=== PATIENT | female | born 1965 | race Caucasian/White ===

== ENCOUNTER 2024-02-12 19:16 | Inpatient (IN) | payer MEDICARE, OTHER ==
[~2024-02-12] VITALS: Ht 160 cm; Wt 77.1 kg
[2024-02-12 20:00] LABS: BASOPHILS % (AUTO) 0.3 % (0.0-2.0); EOSINOPHILS # (AUTO) 0.1 K/uL (0.0-0.7); EOSINOPHILS % (AUTO) 1.5 % (0.0-6.0); HEMATOCRIT 39 % (33-45); HEMOGLOBIN 12.6 g/dL (11.5-14.8); LYMPHOCYTES # (AUTO) 2.4 K/uL (0.8-4.8); LYMPHOCYTES % (AUTO) 25.4 % (20.0-44.0); MEAN CORPUSCULAR HEMOGLOBIN 33 PG (26.0-33.0); MEAN CORPUSCULAR HGB CONC 33 g/dl (31.0-36.0); MEAN CORPUSCULAR VOLUME 101 fL (82-100); MONOCYTES # (AUTO) 1.2 K/uL (0.1-1.30); MONOCYTES % (AUTO) 12.4 % (2.0-12.0); NEUTROPHILS # (AUTO) 5.8 K/uL (1.8-8.9); NEUTROPHILS % (AUTO) 60.4 % (43.0-81.0); PLATELET COUNT (AUTO) 223 K/uL (150-450); RED BLOOD CELL COUNT(AUTO) 3.86 MIL/uL (4.0-5.2); RED CELL DISTRIBUTION WIDTH 12.6 % (11.5-15.0); WHITE BLOOD COUNT (AUTO) 9.6 K/uL (4.3-11.0)
[2024-02-12 20:14] LABS: ACETAMINOPHEN < 10 ug/ml (10-30); ALANINE AMINOTRANSFERASE 7 U/L (12-78); ALBUMIN 2.9 g/dL (3.4-5.0); ALCOHOL, BLOOD < 3 mg/dL (0-10); ALKALINE PHOSPHATASE 58 U/L (46-116); ASPARTATE AMINOTRANSFERASE < 5 U/L (15-37); BILIRUBIN,DIRECT 0.1 mg/dL (0.0-0.2); BILIRUBIN,TOTAL 0.1 mg/dL (0.2-1.0); CALCIUM, SERUM 9.2 mg/dL (8.5-10.1); CARBON DIOXIDE 31 mmol/L (21-32); CHLORIDE 104 mmol/L (98-107); SODIUM SERUM 139 mmol/L (136-145); TOTAL PROTEIN, SERUM 6.3 g/dL (6.4-8.2); UREA NITROGEN, BLOOD 18 mg/dL (7-18)
[2024-02-12 20:21] LABS: SALICYLATE 1.6 mg/dL (2.8-20.0)
[2024-02-12 20:22] LABS: GLUCOSE 480 mg/dL (74-106)
[2024-02-12 20:32] LABS: APPEARANCE,URINE Clear (CLEAR); BILIRUBIN,URINE Negative (NEGATIVE); BLOOD, URINE Negative Ery/uL (NEGATIVE); COLOR,URINE YELLOW (YELLOW); KETONES,URINE Negative (NEGATIVE); LEUKOCYTE ESTERASE ,URINE Negative (NEGATIVE); NITRITE, URINE Negative (NEGATIVE); PROTEIN,URINE Negative (NEGATIVE); UGLUCOSE >=1000 mg/dL (NEGATIVE); UROBILINOGEN,URINE 0.2 EU/dL (0.2)
[2024-02-12 20:40] LABS: RBC,URINE 0-2 /HPF (0-2)
[2024-02-12 20:41] LABS: ADD URINE CULTURE YES; BACTERIA,URINE Few /HPF (None Seen)
[2024-02-12 20:47] LABS: AMPHETAMINE, URINE NEGATIVE (NEGATIVE); BARBITURATE, URINE NEGATIVE (NEGATIVE); BENZODIAZEPINE, URINE NEGATIVE (NEGATIVE); CANNABINOID, URINE NEGATIVE (NEGATIVE); COCCAINE, URINE NEGATIVE (NEGATIVE); OPIATE, URINE NEGATIVE (NEGATIVE); PHENCYCLIDINE SCREEN,URINE NEGATIVE (NEGATIVE)
[2024-02-12] MEDS ORDERED: DEXTROSE 50%-WATER 50 ML DISP.SYRIN IV PRN (21:00)
[2024-02-12] MEDS: INSULIN REGULAR, HUMAN 100 UNIT/ML 10 ML VIAL SQ ONE (21:06)
[2024-02-12] MEDS: BLOOD SUGAR DIAGNOSTIC 1 EACH STRIP IN SCH (22:17)
[2024-02-12] MEDS ORDERED: SERT50TA PO (23:52)
[2024-02-12] MEDS ORDERED: NYST15CR TP (23:52)
[2024-02-12] MEDS ORDERED: MULT-447 PO (23:52)
[2024-02-12] MEDS ORDERED: ARIP10TA9 PO (23:52)
[2024-02-12] MEDS ORDERED: LITH300C2 PO (23:52)
[2024-02-12] MEDS ORDERED: DEUT12TA PO (23:52)
[2024-02-12] MEDS ORDERED: TRAM50TA2 PO (23:52)
[2024-02-12] MEDS ORDERED: FURO-145 PO (23:52)
[2024-02-12] MEDS ORDERED: OLAN10TA3 PO (23:52)
[2024-02-12] MEDS ORDERED: LORA-259 PO (23:52)
[2024-02-12] MEDS ORDERED: HALO100A2 IM (23:52)
[2024-02-12] MEDS ORDERED: DIVA500T54 PO ×2 (23:52)
[2024-02-12] MEDS ORDERED: DICL100G34 TP (23:52)
[2024-02-12] MEDS ORDERED: LEVO75TA7 PO (23:52)
[2024-02-12] MEDS ORDERED: CYAN100096 PO (23:52)
[2024-02-12] MEDS ORDERED: POTA10CA43 PO (23:52)
[2024-02-12] MEDS ORDERED: GABA-532 PO (23:52)
[2024-02-13 00:40] VITALS: BP 92/57; TEMP 98.3; O2SAT 99
[2024-02-13] MEDS ORDERED: MAG HYDROX/AL HYDROX/SIMETH 30 ML UDC PO PRN (01:00)
[2024-02-13] MEDS ORDERED: MAGNESIUM HYDROXIDE 30 ML UDC PO PRN (01:00)
[2024-02-13] MEDS ORDERED: ZOLPIDEM TARTRATE 5 MG TABLET PO PRN ×2 (01:00)
[2024-02-13] MEDS: BLOOD SUGAR DIAGNOSTIC 1 EACH STRIP IN ONE (01:37)
[2024-02-13] MEDS ORDERED: DOCU100C36 PO (02:32)
[2024-02-13] MEDS ORDERED: IBUP-1955 PO (02:34)
[2024-02-13 06:18] VITALS: BP 92/57; TEMP 98.3; O2SAT 99
[2024-02-13] MEDS: INSULIN REGULAR, HUMAN 100 UNIT/ML 3 ML VIAL SQ PRN (07:54)
[2024-02-13] MEDS: LEVOTHYROXINE SODIUM 75 MCG TABLET PO SCH (07:56)
[2024-02-13] MEDS: POTASSIUM CHLORIDE 10 MEQ TABLET.SA PO SCH (08:33)
[2024-02-13] MEDS: FUROSEMIDE 20 MG TABLET PO SCH (08:33)
[2024-02-13] MEDS: OLANZAPINE 10 MG VIAL IM ONE (08:46)
[2024-02-13] MEDS: NYSTATIN CREAM 15 GM TUBE TP SCH (09:00)
[2024-02-13] MEDS: CYANOCOBALAMIN 500 MCG TABLET PO SCH (09:00)
[2024-02-13] MEDS: MULTIVIT W/MINERALS 1 TAB TABLET PO SCH (09:00)
[2024-02-13] MEDS: GABAPENTIN 300 MG CAPSULE PO SCH (09:00)
[2024-02-13] MEDS: DICLOFENAC TOPICAL 100 GM TUBE TP SCH (09:00)
[2024-02-13] MEDS: BENZTROPINE MESYLATE (1 MG) 1 MG TABLET PO SCH (15:24)
[2024-02-13] MEDS: OLANZAPINE 2.5 MG TABLET PO SCH (15:24)
[2024-02-13] MEDS: DIVALPROEX SODIUM 500 MG TABLET.DR PO SCH (15:24)
[2024-02-13 16:00] VITALS: BP 120/80; TEMP 98; O2SAT 98
[2024-02-13] MEDS ORDERED: DIVALPROEX SODIUM 500 MG TABLET.DR PO SCH ×2 (17:00)
[2024-02-13] MEDS: CLOTRIMAZOLE 1% 15 GM TUBE TP SCH (17:19)
[2024-02-13 20:00] VITALS: BP 107/50; TEMP 97.9; O2SAT 100
[2024-02-13] MEDS: TEMAZEPAM 7.5 MG CAPSULE PO PRN (21:26)
[2024-02-14] MEDS: OLANZAPINE 2.5 MG TABLET PO PRN (04:20)
[2024-02-14 07:16] LABS: BASOPHILS % (AUTO) 0.4 % (0.0-2.0); EOSINOPHILS # (AUTO) 0.1 K/uL (0.0-0.7); EOSINOPHILS % (AUTO) 0.8 % (0.0-6.0); HEMATOCRIT 38 % (33-45); HEMOGLOBIN 12.7 g/dL (11.5-14.8); LYMPHOCYTES # (AUTO) 2.1 K/uL (0.8-4.8); LYMPHOCYTES % (AUTO) 29.3 % (20.0-44.0); MEAN CORPUSCULAR HEMOGLOBIN 33 PG (26.0-33.0); MEAN CORPUSCULAR HGB CONC 33 g/dl (31.0-36.0); MEAN CORPUSCULAR VOLUME 98 fL (82-100); MONOCYTES # (AUTO) 0.8 K/uL (0.1-1.30); NEUTROPHILS # (AUTO) 4.2 K/uL (1.8-8.9); NEUTROPHILS % (AUTO) 58.5 % (43.0-81.0); PLATELET COUNT (AUTO) 238 K/uL (150-450); RED BLOOD CELL COUNT(AUTO) 3.88 MIL/uL (4.0-5.2); WHITE BLOOD COUNT (AUTO) 7.1 K/uL (4.3-11.0)
[2024-02-14 07:31] LABS: CALCIUM, SERUM 9.7 mg/dL (8.5-10.1); CREATININE 0.7 mg/dL (0.6-1.3); POTASSIUM 4.4 mmol/L (3.5-5.1)
[2024-02-14 08:00] VITALS: BP 108/82; TEMP 97.7; O2SAT 97
[2024-02-14] MEDS: ZIPRASIDONE MESYLATE 20 MG/VIAL VIAL IM ONE (09:13)
[2024-02-14] MEDS: DIVALPROEX SODIUM 250 MG TABLET.DR PO SCH (12:02)
[2024-02-14] MEDS: METFORMIN 500 MG TABLET PO SCH (12:23)
[2024-02-14 16:00] VITALS: BP 107/53; TEMP 98.2; O2SAT 98
[2024-02-14 20:00] VITALS: BP 125/82; TEMP 97.7; O2SAT 98
[2024-02-14] MEDS: OLANZAPINE 2.5 MG TABLET PO SCH (21:21)
[2024-02-14] MEDS: TRAZODONE 50 MG TABLET PO SCH (22:12)
[2024-02-15] MEDS: TRAMADOL HCL 50 MG TABLET PO PRN (04:43)
[2024-02-15] MEDS: ZIPRASIDONE MESYLATE 20 MG/VIAL VIAL IM ONE (05:34)
[2024-02-15] MEDS: OLANZAPINE 2.5 MG TABLET ONE (05:53)
[2024-02-15 08:00] VITALS: BP 131/88; TEMP 98.2; O2SAT 96
[2024-02-15] MEDS: PROPRANOLOL HCL 10 MG TABLET PO SCH (12:06)
[2024-02-15 16:00] VITALS: BP 118/79; TEMP 98.4; O2SAT 96
[2024-02-16] MEDS: ACETAMINOPHEN 325 MG TABLET PO PRN (04:26)
[2024-02-16 08:00] VITALS: BP 111/73; TEMP 98.7; O2SAT 100
[2024-02-16] MEDS: OLANZAPINE 2.5 MG TABLET PO SCH (13:48)
[2024-02-16 16:00] VITALS: BP 110/75; TEMP 98.1; O2SAT 97
[2024-02-16 20:49] VITALS: BP 101/64; TEMP 99; O2SAT 99
[2024-02-16] MEDS: OLANZAPINE 10 MG TABLET PO SCH (21:03)
[2024-02-17 08:00] VITALS: BP 126/96; TEMP 98.7; O2SAT 98
[2024-02-17 16:00] VITALS: BP 111/74; TEMP 97.9; O2SAT 99
[2024-02-17 20:00] VITALS: BP_SYST 105; BP_SYST 88; BP_DIAS 44; BP_DIAS 52; TEMP 97.8; O2SAT 97
[2024-02-18] MEDS: clonazePAM 0.5 MG TABLET PO PRN (05:58)
[2024-02-18 08:00] VITALS: BP 109/78; TEMP 98.7; O2SAT 98
[2024-02-18] MEDS: DIVALPROEX SODIUM 250 MG TABLET.DR PO SCH (08:39)
[2024-02-18 16:00] VITALS: BP 100/51; TEMP 98.7; O2SAT 100
[2024-02-18 20:00] VITALS: BP 84/50; TEMP 98.8; O2SAT 99
[2024-02-19 08:00] VITALS: BP 122/106; TEMP 97.7; O2SAT 94
[2024-02-19] MEDS: LORAZEPAM 0.5 MG TABLET PO ONE (09:21)
[2024-02-19] MEDS: clonazePAM 0.5 MG TABLET PO SCH (13:21)
[2024-02-19 16:00] VITALS: BP 123/90; TEMP 97.4; O2SAT 94
[2024-02-19] MEDS: ZIPRASIDONE MESYLATE 20 MG/VIAL VIAL IM ONE (16:49)
[2024-02-19 20:00] VITALS: BP 76/52; TEMP 98.8; O2SAT 96
[2024-02-19 22:10] VITALS: BP 92/63; O2SAT 95
[2024-02-20 00:31] VITALS: BP 133/73; O2SAT 97
[2024-02-20 08:00] VITALS: BP 138/98; TEMP 98.6; O2SAT 98
[2024-02-20 16:02] VITALS: BP 146/74; TEMP 98.4; O2SAT 100
[2024-02-21 08:00] VITALS: BP 112/90; TEMP 98; O2SAT 100
[2024-02-21] MEDS: OLANZAPINE 2.5 MG TABLET PO SCH (08:52)
[2024-02-21 16:00] VITALS: BP 119/86; TEMP 98.6; O2SAT 100
[2024-02-21] MEDS: clonazePAM 0.5 MG TABLET PO SCH (16:09)
[2024-02-21] MEDS: DIVALPROEX SODIUM 250 MG TABLET.DR PO SCH (16:09)
[2024-02-22 08:00] VITALS: BP 121/94; TEMP 97.8; O2SAT 100
[2024-02-22] MEDS: LORAZEPAM INJ 2 MG/ML VIAL IM STA (09:07)
[2024-02-22 16:04] VITALS: BP 94/65; TEMP 97.9; O2SAT 94
[2024-02-22 20:32] VITALS: BP 117/76; TEMP 98.2; O2SAT 95
[2024-02-22] MEDS: OLANZAPINE 10 MG TABLET PO SCH (21:18)
[2024-02-23 08:00] VITALS: BP 130/97; TEMP 97.8; O2SAT 98
[2024-02-23] MEDS ORDERED: LORAZEPAM INJ 2 MG/ML VIAL IV STA (09:46)
[2024-02-23] MEDS: LORAZEPAM INJ 2 MG/ML VIAL IM STA (10:11)
[2024-02-23] MEDS: GABAPENTIN 300 MG CAPSULE PO STA (12:03)
[2024-02-23] MEDS: GABAPENTIN 300 MG CAPSULE PO SCH (12:54)
[2024-02-23 16:00] VITALS: BP 100/56; TEMP 98.2; O2SAT 96
[2024-02-23 20:59] VITALS: BP 100/63; TEMP 98; O2SAT 94
[2024-02-24] MEDS: LORAZEPAM INJ 2 MG/ML VIAL IM STA (09:01)
[2024-02-24] MEDS: OLANZAPINE 2.5 MG TABLET PO SCH (14:15)
[2024-02-24 16:00] VITALS: BP 111/82; TEMP 97.3; O2SAT 97
[2024-02-24 20:00] VITALS: BP 81/57; TEMP 98.8; O2SAT 97
[2024-02-24 22:00] VITALS: BP 105/68; TEMP 97; O2SAT 96
[2024-02-25 08:00] VITALS: BP 122/96; TEMP 98.7; O2SAT 96
[2024-02-25] MEDS: LORAZEPAM INJ 2 MG/ML VIAL IM STA (09:33)
[2024-02-25] MEDS: TRAZODONE 50 MG TABLET PO SCH (14:55)
[2024-02-25 15:36] VITALS: BP 100/60; TEMP 98.4; O2SAT 100
[2024-02-25 20:00] VITALS: BP 101/68; TEMP 98.7; O2SAT 96
[2024-02-26 08:00] VITALS: BP 90/66; TEMP 97.7; O2SAT 95
[2024-02-26 08:30] LABS: ALBUMIN 3.2 g/dL (3.4-5.0); BILIRUBIN,TOTAL 0.6 mg/dL (0.2-1.0); CALCIUM, SERUM 9.1 mg/dL (8.5-10.1); CREATININE 1.1 mg/dL (0.6-1.3); POTASSIUM 4.5 mmol/L (3.5-5.1); TOTAL PROTEIN, SERUM 6.4 g/dL (6.4-8.2)
[2024-02-26] MEDS: DIVALPROEX SODIUM 250 MG TABLET.DR PO SCH (11:53)
[2024-02-26 13:50] VITALS: BP 104/62; O2SAT 98
[2024-02-26 16:00] VITALS: BP 96/60; TEMP 97.5; O2SAT 99
[2024-02-26 20:00] VITALS: BP 134/89; TEMP 97.8; O2SAT 95
[2024-02-26] MEDS: DIVALPROEX SODIUM 125 MG TABLET.DR PO SCH (20:36)
[2024-02-26 22:45] VITALS: BP 105/80; O2SAT 96
[2024-02-27 08:00] VITALS: BP 114/71; TEMP 97.8; O2SAT 97
[2024-02-27] MEDS: DIVALPROEX SODIUM 125 MG CAP.SPRINK PO SCH ×2 (08:58→21:06)
[2024-02-27 16:00] VITALS: BP 100/58; TEMP 98; O2SAT 98
[2024-02-27] MEDS: Z GUARD REMEDY 4 OZ OINT TP PRN (17:27)
[2024-02-27 21:11] VITALS: BP 113/66; TEMP 98.2; O2SAT 98
[2024-02-28 08:00] VITALS: BP 102/69; TEMP 98.6; O2SAT 98
[2024-02-28] MEDS: clonazePAM 0.5 MG TABLET PO SCH (09:22)
[2024-02-28 16:00] VITALS: BP 104/59; TEMP 98.4; O2SAT 100
[2024-02-28 20:20] VITALS: BP_SYST 107; BP_SYST 115; BP_DIAS 69; BP_DIAS 70; TEMP 97.9; O2SAT 99
[2024-02-29 08:09] VITALS: BP 118/80; TEMP 98.6; O2SAT 98
[2024-02-29 15:55] VITALS: BP 115/71; TEMP 97.2; O2SAT 96
[2024-02-29 15:57] VITALS: BP 115/71; TEMP 97.2; O2SAT 96
[2024-02-29 20:09] VITALS: BP 119/92; TEMP 97.8; O2SAT 97
[2024-03-01 08:16] VITALS: BP 120/81; TEMP 98.7; O2SAT 99
[2024-03-01 08:33] VITALS: BP 120/81
== END 2024-03-01 15:45 | DRG 885 ==
LOC: ER 19:20 → GPS 23:34
PROVIDERS: ADMIT Psychiatry & Neurology Psychiatry; ATTEND Student in an Organized Health Care Education/Training Program
DX: F25.9 Schizoaffective disorder, unspecified (principal); E11.65 Type 2 diabetes mellitus with hyperglycemia; E44.0 Moderate protein-calorie malnutrition; F29 Unspecified psychosis not due to a substance or known physiological condition; G31.84 Mild cognitive impairment of uncertain or unknown etiology; R62.50 Unspecified lack of expected normal physiological development in childhood; E78.5 Hyperlipidemia, unspecified; E11.40 Type 2 diabetes mellitus with diabetic neuropathy, unspecified; G40.909 Epilepsy, unspecified, not intractable, without status epilepticus; F31.9 Bipolar disorder, unspecified; E03.9 Hypothyroidism, unspecified; Z88.0 Allergy status to penicillin; Z88.1 Allergy status to other antibiotic agents; Z73.6 Limitation of activities due to disability; E88.09 Other disorders of plasma-protein metabolism, not elsewhere classified; F41.9 Anxiety disorder, unspecified; I10 Essential (primary) hypertension; M19.90 Unspecified osteoarthritis, unspecified site; Z79.899 Other long term (current) drug therapy; Z91.410 Personal history of adult physical and sexual abuse
CPT/HCPCS: 36415; 80048-TC; 80053-TC; 80061-TC; 80076-TC; 80164-TC; 81001; 82962-TC; 85025-TC; 87081-TC; 87086-TC; 97116-TC; 97530-TC; G0480; J1815; J2060; J3486; J3490